=== PATIENT | female | born 1940 | race Caucasian/White ===

== ENCOUNTER 2017-09-24 19:14 | Emergency (ER) | payer OTHER ==
[~2017-09-24] VITALS: Ht 152.4 cm; Wt 68.0 kg
[2017-09-24 19:19] VITALS: BP_SYST 93
[2017-09-24] MEDS ORDERED: methylPREDNISolone SOD SUCC/PF 62.5 MG/ML VIAL IVP ONE (19:30)
[2017-09-24] MEDS ORDERED: IPRATROPIUM BROM 0.5 MG/2.5 ML VIAL.NEB (ATROVENT) IH ONE (19:30)
[2017-09-24] MEDS ORDERED: ALBUTEROL SULFATE 0.083% 2.5 MG/3 ML VIAL.NEB IH ONE (19:30)
[2017-09-24] MEDS ORDERED: MAGNESIUM SULFATE 50 ML IV ONE (19:30)
[2017-09-24] MEDS ORDERED: EPINEPHrine 1 MG/ML AMP ONE (21:59)
== END 2017-09-24 22:20 | disposition expired ==
LOC: SED 19:14
DX: I46.9 Cardiac arrest, cause unspecified (principal); J84.10 Pulmonary fibrosis, unspecified; Z88.5 Allergy status to narcotic agent; Z88.8 Allergy status to other drugs, medicaments and biological substances
CPT/HCPCS: 31500; 82962; 92950; 99291; J0171; J2930; J3475; J7030